=== PATIENT | female | born 1980 | race Caucasian/White ===

== ENCOUNTER 2017-01-27 19:58 | Emergency (ER) | payer SELFPAY ==
[~2017-01-27] VITALS: Ht 152.4 cm; Wt 40.9 kg
[2017-01-27 20:31] LABS: BASOPHILS # (AUTO) 0.02 K/uL (0.00-0.20); BASOPHILS % (AUTO) 0.3 % (0.0-2.0); EOSINOPHILS # (AUTO) 0.05 K/uL (0.00-0.70); EOSINOPHILS % (AUTO) 0.76 % (1.0-6.0); HEMATOCRIT 34.8 % (36-46); HEMOGLOBIN 12.1 g/dL (12.0-16.0); LYMPHOCYTES # (AUTO) 2.1 K/uL (1.0-4.8); LYMPHOCYTES % (AUTO) 31.8 % (22.0-44.0); MEAN CORPUSCULAR HGB CONC 34.8 G/dL (31.0-37.0); MEAN CORPUSCULAR VOLUME 104 fL (80-100); MONOCYTES # (AUTO) 0.5 K/uL (0.1-1.0); MONOCYTES % (AUTO) 7.4 % (2.0-9.0); NEUTROPHILS # (AUTO) 3.9 K/uL (1.8-7.7); NEUTROPHILS % (AUTO) 59.7 % (40.0-70.0); PLATELET COUNT (AUTO) 264 K/uL (150-450); RED BLOOD CELL COUNT(AUTO) 3.36 MIL/uL (4.00-5.20); WHITE BLOOD COUNT (AUTO) 6.5 K/uL (4.5-11.0)
[2017-01-27 20:48] LABS: ANION GAP 7 mmol/L (8-16); CALCIUM, TOTAL 8.5 mg/dL (8.8-10.5); CARBON DIOXIDE 30 mmol/L (22-29); CHLORIDE 101 mmol/L (98-107); CREATININE 0.47 mg/dL (0.60-1.30); GLOMERULAR FILTR. RATE CALC > 60 mL/min (>60); SODIUM SERUM 138 mmol/L (136-145); UREA NITROGEN, BLOOD 0 mg/dL (7-18)
[2017-01-27 20:53] LABS: ALANINE AMINOTRANSFERASE 68 U/L (12-78); ALBUMIN 3.5 g/dL (3.4-5.0); ASPARTATE AMINOTRANSFERASE 424 U/L (15-37); BILIRUBIN,TOTAL 0.4 mg/dL (0.1-1.0); TOTAL PROTEIN, SERUM 8.1 g/dL (6.4-8.2)
[2017-01-27 23:14] LABS: RBC MORPHOLOGY COMMENT ABNORMAL RBC MORPH
[2017-01-28 04:20] VITALS: BP 121/69
== END 2017-01-28 04:40 | disposition home or self-care (01) ==
LOC: EMS 19:59
DX: R45.851 Suicidal ideations (principal); F10.129 Alcohol abuse with intoxication, unspecified; K70.30 Alcoholic cirrhosis of liver without ascites
CPT/HCPCS: 36415; 80053; 85025; 99285; G0480

== ENCOUNTER 2020-07-11 06:56 | Emergency (ER) | payer OTHER ==
[~2020-07-11] VITALS: Ht 154.9 cm; Wt 45.5 kg
[2020-07-11] MEDS ORDERED: ACETAMINOPHEN 500 MG TABLET PO ONE (07:45)
[2020-07-11 07:55] VITALS: BP 105/72
== END 2020-07-11 08:11 | disposition home or self-care (01) ==
LOC: EMS 06:57
DX: S90.121A Contusion of right lesser toe(s) without damage to nail, initial encounter (principal); S00.212A Abrasion of left eyelid and periocular area, initial encounter; S00.211A Abrasion of right eyelid and periocular area, initial encounter; W06.XXXA Fall from bed, initial encounter; Y93.89 Activity, other specified; Y92.89 Other specified places as the place of occurrence of the external cause; Y99.8 Other external cause status
CPT/HCPCS: 99283

== ENCOUNTER 2020-09-24 09:31 | Emergency (ER) | payer OTHER ==
[~2020-09-24] VITALS: Ht 152.4 cm; Wt 59.1 kg
[2020-09-24] MEDS ORDERED: KETOROLAC TROMETHAMINE 30 MG/ML VIAL IM ONE (12:15)
[2020-09-24 12:21] VITALS: BP 110/70
== END 2020-09-24 12:27 | disposition home or self-care (01) ==
LOC: EMS 09:36
DX: S70.11XA Contusion of right thigh, initial encounter (principal); S70.01XA Contusion of right hip, initial encounter; W19.XXXA Unspecified fall, initial encounter; Y93.89 Activity, other specified; Y92.89 Other specified places as the place of occurrence of the external cause; Y99.8 Other external cause status
CPT/HCPCS: 73502; 76881; 81025; 96372; 99284; J1885